=== PATIENT | female | born 1990 | race Caucasian/White ===

== ENCOUNTER 2025-02-10 19:29 | Emergency (ER) | payer SELFPAY ==
[~2025-02-10] VITALS: Ht 160 cm; Wt 91.0 kg
[2025-02-10 19:37] VITALS: TEMP 36.8; O2SAT 98
[2025-02-10 21:58] LABS: CLARITY URINE CLOUDY (CLEAR); COLOR URINE YELLOW (YELLOW); GLUCOSE URINE NEGATIVE (NEGATIVE); KETONES URINE NEGATIVE (NEGATIVE); LEUKOCYTE ESTERASE URINE 2+ (NEGATIVE); NITRITE URINE NEGATIVE (NEGATIVE); OCCULT BLOOD URINE NEGATIVE (NEGATIVE); PH URINE 6.5 (4.5-8.0); PROTEIN URINE TRACE (NEGATIVE); SPECIFIC GRAVITY URINE 1.032 (1.005-1.030); UROBILINOGEN URINE 1.0 E.U./dL (0.2-1.0)
[2025-02-10 22:09] LABS: BACTERIA URINE 2+; RBC URINE 0-2 /hpf (0-2); SQUAMOUS EPITHELIAL CELL URINE 1+ /lpf (RARE/1+)
[2025-02-10] MEDS: CYCLOBENZAPRINE 10MG TABLET PO ONE (23:03)
[2025-02-10] MEDS: LIDOCAINE 5% PATCH TOP STA (23:08)
[2025-02-10 23:11] VITALS: BP 113/62; PULSE 67; RESP 17
[2025-02-10] MEDS: KETOROLAC 30MG/ML VIAL IM ONE (23:11)
[2025-02-10] MEDS ORDERED: CYCL10TA21 MT (23:58)
[2025-02-10] MEDS ORDERED: KETO10TA2 MT (23:58)
[2025-02-10] MEDS ORDERED: LIDO700A30 TP (23:58)
[2025-02-11] MEDS ORDERED: NITR100C MT (00:12)
== END 2025-02-11 01:09 | disposition home or self-care (01) ==
LOC: ER 19:29
DX: M54.50 Low back pain, unspecified (principal); N39.0 Urinary tract infection, site not specified; X50.1XXA Overexertion from prolonged static or awkward postures, initial encounter; Y93.89 Activity, other specified; Y92.89 Other specified places as the place of occurrence of the external cause; Y99.8 Other external cause status
CPT/HCPCS: 99284; 81003; 81025; 72100; 96372; J1885; 99283